=== PATIENT | male | born 1990 | race Two or more races ===

== ENCOUNTER 2016-09-15 09:45 | Emergency (ER) | payer SELFPAY ==
[~2016-09-15] VITALS: Ht 165.1 cm; Wt 59.0 kg
[2016-09-15] MEDS ORDERED: FAMOTIDINE 20 MG/2 ML IVP ONE (10:00)
[2016-09-15] MEDS ORDERED: MORPHINE SULFATE 4 MG/ML, 1ML IVPush PRN (10:00)
[2016-09-15] MEDS ORDERED: SODIUM CHLORIDE FLUSH 10ML SYR IVF ONE (10:00)
[2016-09-15] MEDS ORDERED: ONDANSETRON 2MG/ML, 2ML IVPush ONE (10:00)
[2016-09-15] MEDS ORDERED: MAALOX/HYOSCYAMINE/LIDOCAINE 45 ML BOTTLE PO ONE (10:00)
[2016-09-15] MEDS ORDERED: SODIUM CHLORIDE 0.9% 1,000ML IVBOLUS ONE (10:00)
[2016-09-15] MEDS ORDERED: MAALOX/HYOSCYAMINE/LIDOCAINE 45 ML BOTTLE ONE (10:08)
[2016-09-15] MEDS ORDERED: MORPHINE SULFATE 4 MG/ML, 1ML ONE (10:08)
[2016-09-15] MEDS ORDERED: ONDANSETRON 2MG/ML, 2ML ONE (10:08)
[2016-09-15] MEDS ORDERED: FAMOTIDINE 20 MG/2 ML ONE (10:09)
[2016-09-15 10:23] LABS: ASPARTATE AMINO TRANSFERASE 21 U/L (15-37); BLOOD UREA NITROGEN 10 mg/dL (7-18)
[2016-09-15 11:35] VITALS: BP 126/76
== END 2016-09-15 11:36 | disposition home or self-care (01) ==
LOC: ED 11:12
DX: K52.9 Noninfective gastroenteritis and colitis, unspecified (principal)
CPT/HCPCS: 36415; 80053; 83690; 85025; 96361; 96374; 96375; 99284; J2405; J7030; S0028